=== PATIENT | female | born 1960 | race Caucasian/White ===

== ENCOUNTER 2019-06-01 14:48 | Outpatient (CLI) | payer OTHER, SELFPAY ==
--- NOTE | 2019-06-01 15:28 | XR_ITS ---
WS: [id number] LUMBAR SPINE TECHNIQUE: 3 views of the lumbar spine CLINICAL INFORMATION: LOW BACK PAIN COMPARISON: None. FINDINGS: Five [id number]-emdxskp lumbar vertebral bodies. Mild lumbar curve convex right. Disc space heights are well preserved. No compression fractures. Osteopenia. No spondylolisthesis. Visualized sacroiliac annamarie nts are normal. Normal visualized soft tissues. Partially visualized bowel gas pattern is normal. XR/XR lumbar spine 2-3V* [id number] IMPRESSION: Mild lumbar curve convex right. Lumbar spine otherwise unremarkable.
== END 2019-06-01 14:49 | disposition home or self-care (01) ==
LOC: WPI 14:52
PROVIDERS: Family Provider Nurse Practitioner; PCP Nurse Practitioner; Visit Provider Nurse Practitioner
DX: M54.5 Low back pain (principal)
CPT/HCPCS: 72100

== ENCOUNTER 2020-02-29 09:23 | Outpatient (CLI) | payer BC, SELFPAY ==
--- NOTE | 2020-02-29 09:34 | MM_ITS ---
WS: [id number] Bilateral screening digital mammogram, 02/29/2020 Clinical Data: SCREENING Comparison: 01/19/2019, 12/15/2017, 11/25/2016, 11/20/2015, 11/07/2014, 10/25/2013, 10/12/2012, 08/03/2011, , 07/22/2009. Findings: The breast parenchymal pattern shows extremely dense tissue No spiculated masses or clustered calcifi cations are seen. There are no secondary signs of carcinoma. MM/[place] [id number] Impression: 1. Negative bilateral mammogram unchanged. 2. Recommend annual screening mammograms. BIRADS: 1-Negative FOLLOW UP: 1 Year Follow-up The CAD food checkers and cashiers supervisor was used.
== END 2020-02-29 09:24 | disposition home or self-care (01) ==
LOC: RADSHAW 09:27
PROVIDERS: PCP Nurse Practitioner; Visit Provider Nurse Practitioner
DX: Z12.31 Encounter for screening mammogram for malignant neoplasm of breast (principal)
CPT/HCPCS: 77067

== ENCOUNTER 2020-06-05 19:07 | Emergency (ER) | payer BC, SELFPAY ==
[2020-06-05 19:12] VITALS: BP 93/65; PULSE 76; RESP 18; TEMP 35.7; O2SAT 100
--- NOTE | 2020-06-05 19:30 | ED_ITS ---
HPI - Abdominal Pain General: Chief Complaint: Abdominal Pain Stated Complaint: n/v Time Seen by Provider: 06/05/20 19:19 History of Present Illness: HPI narrative: The patient is a 60-year-old female with no significant past medical history who comes to the ER complaining of right lower abdominal pain. She has never had surgery on her belly. She said she vomited a couple times at home and nearly passed out twice. She had a normal bowel movement and then came to the ER. MD elicited complaint: abdominal pain Pertinent past history: none Onset (ago): hour(s) (2) Pain Consistency: constant and colicky Location: RLQ Severity: moderate Quality: cramping and sharp Radiation: none Migration to: no migration Exacerbating factors: nothing Relieving factors: nothing Associated Symptoms: Reports GI cramping, nausea and vomiting; Denies diarrhea, dysuria and fever(s) Review of Systems General: Reports: 10 or more systems reviewed and unremarkable except in HPI and below Const: Denies: fever(s) Eyes: Denies: change in vision, blurry vision or eye redness ENMT: Denies: throat pain, swelling of lips/tongue, ear or mastoid pain or nasal congestion Card: Denies: chest pain, palpitations, irregular heart rhythm, edema, dyspnea on exertion or orthopnea Resp: Denies: dyspnea, productive cough or non-productive cough GI: Reports: nausea, vomiting and GI cramping; Denies: diarrhea : Denies: dysuria Musc: Denies: neck pain, back pain, extremity pain, joint pain, joint redness, limited range of motion or muscle weakness Skin/Breast: Denies: rash, pruritus, erythema, skin pain or skin tenderness Neuro: Denies: headache(s), numbness in extremities, weakness in extremities, sensory changes, difficulty walking, dizziness, confusion or Slurred speech present Psych: Denies: anxiety or depression Endo: Denies: polyuria All/Imm: Denies: urticaria, throat swelling or tongue swelling Physical Exam Const: COMMON NORMALS: no acute distress, average body habitus, patient oriented x3, no limitations, healthy appearing, alert and well nourished GENERAL APPEARANCE: cooperative, comfortable, well kempt and well developed ORIENTATION/CONSCIOUSNESS: Yes awake, Yes oriented to person, Yes oriented to place and Yes oriented to time HENMT: COMMON NORMALS: normocephalic, external ears normal and Normal external nose present HEAD & SCALP: normal to inspection and normocephalic NOSE: Normal external nose present EXTERNAL EAR: Yes external ears normal MOUTH: Normal oral and palatal mucosa present THROAT: posterior oropharynx normal Eye: COMMON NORMALS: Equal, round and reactive pupils present and EOMs intact bilaterally GENERAL EYE: appearance normal, both eyes and all related structures PUPIL: Yes Equal, round and reactive pupils present Neck/C-Spine: COMMON NORMALS: full ROM, no lymphadenopathy, no meningeal signs and no JVD GENERAL: Yes normal visual inspection Lymph: LYMPHATIC: no lymphadenopathy noted Chest: COMMONS NORMALS: normal inspection of the chest and normal palpation of entire chest wall Resp: COMMON NORMALS: normal respiratory effort, No retractions, No use of accessory muscles, clear to auscultation bilaterally and percussion normal EF FORT & INSPECTION: Yes able to speak in complete sentences AUSCULTATION: clear to auscultation bilaterally PERCUSSION: percussion normal Cardio: COMMON NORMALS: no JVD, regular rate, regular rhythm, S1 normal heart sound present, S2 normal heart sound present and Peripheral pulses 2+ throughout RATE: regular rate RHYTHM: regular rhythm HEART SOUNDS: S1 normal heart sound present and S2 normal heart sound present PERIPHERAL PULSES: Peripheral pulses 2+ throughout GI: COMMON NORMALS: Normal to inspection, nondistended, normoactive bowel sounds present, Soft to palpation, non-tender and no masses INSPECTION: Yes normal to inspection PALPATION: Yes Soft to palpation : COMMON NORMALS: Yes no CVA tenderness BLADDER/KIDNEY EXAM: Yes no CVA tenderness Back/Pelvis: COMMON NORMALS: no CVA tenderness, thoracic and lumbar spine normal to inspection, no thoracic nor lumbar tenderness and thoraco-lumbar ROM normal Extremity: COMMON NORMALS: normal to inspection, full ROM, capillary refill normal, no joint enlargement and no pedal edema GENERAL: Yes normal exam except as noted Neuro: COMMON NORMALS: patient oriented x3, CN's II-XII intact bilaterally, moves all extremities, no focal motor deficits, no sensory deficits noted and gait normal SENSORIUM/ORIENTATION: Yes alert, Yes oriented to person, Yes oriented to place and Yes oriented to time MENINGEAL SIGNS: Yes no meningeal signs Psych: COMMON NORMALS: mental status grossly normal, Normal thought process present, cooperative, normal affect and speech normal APPEARANCE: Yes well kempt ATTITUDE: Yes calm SPEECH: Yes normal speech THOUGHT PROCESS: Normal thought process present Skin: COMMON NORMALS: no rashes or lesions noted GENERAL SKIN EXAM: no rashes or lesions noted Course Vital Signs: Vital signs: Vital Signs Temperature 96.2 F L 06/05/20 19:12 Pulse Rate 84 06/05/20 22:02 Respiratory Rate 17 06/05/20 22:02 Blood Pressure 104/62 06/05/20 22:02 Pulse Oximetry 100 06/05/20 22:02 MDM - Abdominal Pain MDM Narrative: Medical decision making narrative: The patient was initially in severe pain and slightly hypotensive with a white count of 13.8. She was given IV fluids, levofloxacin and she greatly improved. CT shows a 5 mm right ureterolithiasis at the sacral level. She had an adverse reaction to morphine for her pain and desaturated significantly. She was able to be woke and recovered spontaneously. After an hour her pain completely resolved to 0 and likely her stone passed. When she went to urinate though, no stone was in her strained urine. She will be sent home with a strainer. She will also be given ciprofloxacin, Zofran, and a case management referral has been placed to help her obtain a urology referral as an outpatient. Lactic acid was initially concerning at 4.1 however after the fluids and her complete turnaround feeling much better it lowered to near normal level. She is stable for discharge and will return with worsening symptoms. Recommended pushing fluids Differential Diagnosis: Differential diagnosis abdominal pain: Likely abdominal pain and calculus of kidney Lab Data: Labs: Lab Results 06/05/20 06/05/20 06/05/20 Range/Units 20:08 20:08 20:08 WBC 13.8 H (4.0-10.0) 10^3/ uL RBC 4.46 (4.1-5.3) 10^6/u L Hgb 13.1 (11.5-15.3) g/dL Hct 40.6 (37.0-47.0) % MCV 91.0 (81-99) fL MCH 29.4 (28.0-34.0) pg MCHC 32.3 (30.0-36.0) g/dL RDW 11.9 L (12.1-15.1) % Plt Count 278 (130-400) 10^3/c mm MPV 9.5 (7.4-10.4) fL Neut % (Auto) 82.3 % Lymph % (Auto) 10.4 % Travis % (Auto) 6.1 % Eos % (Auto) 0.3 % Baso % (Auto) 0.5 % Neut # (Auto) 11.35 H (1.8-7.7) 10^3/u L Lymph # (Auto) 1.4 (0.8-4.8) 10^3/u L Travis # (Auto) 0.8 (0.2-0.9) 10^3/u L Eos # (Auto) 0.0 (0.0-0.8) 10^3/u L Baso # (Auto) 0.1 (0.0-0.1) 10^3/u L Nucleated RBC % (a uto) 0 % Nucleated RBCs # 0.0 /100WBC Sodium 140 (136-145) mmol/L Potassium 3.5 (3.5-5.1) mmol/L Chloride 101 (98-107) mmol/L Carbon Dioxide 24 (22-29) mmol/L Anion Gap 18.5 (5-19) BUN 19 (8-23) mg/dL Creatinine 0.8 (0.5-0.9) mg/dL GFR Calculation 93.3 (90-130) mL/min Glucose 149 H (65-115) mg/dL Calculated Osmolal ity 295 (285-295) mOsm/k g Lactate 4.1 H* (0.5-2.2) mmol/L Calcium 9.7 (8.5-10.5) mg/dL Total Bilirubin 0.3 (0.15-1.2) mg/dL AST 17 (0-32) U/L ALT 13 (0-33) U/L Alkaline Phosphata se 81 (35-105) IU/L Total Protein 7.0 (6.6-8.7) g/dL Albumin 4.2 (3.5-5.2) g/dL Globulin 2.8 (1.3-4.6) g/dL Lipase 46 (13-60) U/L Urine Color (Yellow) Urine Appearance (CLEAR) Urine pH (5-7) Ur Specific Gravit y (1.005-1.030) Urine Protein (Negative) Urine Glucose (UA) (Normal) Urine Ketones (Negative) Urine Blood (Negative) Urine Nitrate (Negative) Urine Bilirubin (Negative) Urine Urobilinogen (Negative) mg/dL Ur Leukocyte Parisa ase (Negative) Urine RBC (0-2) /hpf Urine WBC (0-5) /hpf Ur Squamous Epith Cells (0-5) /hpf Amorphous Sediment Urine Bacteria (NONE) /hpf 06/05/20 06/05/20 Range/Units 22:29 22:29 WBC (4.0-10.0) 10^3/ uL RBC (4.1-5.3) 10^6/u L Hgb (11.5-15.3) g/dL Hct (37.0-47.0) % MCV (81-99) fL MCH (28.0-34.0) pg MCHC (30.0-36.0) g/dL RDW (12.1-15.1) % Plt Count (130-400) 10^3/c mm MPV (7.4-10.4) fL Neut % (Auto) % Lymph % (Auto) % Travis % (Auto) % Eos % (Auto) % Baso % (Auto) % Neut # (Auto) (1.8-7.7) 10^3/u L Lymph # (Auto) (0.8-4.8) 10^3/u L Travis # (Auto) (0.2-0.9) 10^3/u L Eos # (Auto) (0.0-0.8) 10^3/u L Baso # (Auto) (0.0-0.1) 10^3/u L Nucleated RBC % (a uto) % Nucleated RBCs # /100WBC Sodium (136-145) mmol/L Potassium (3.5-5.1) mmol/L Chloride (98-107) mmol/L Carbon Dioxide (22-29) mmol/L Anion Gap (5-19) BUN (8-23) mg/dL Creatinine (0.5-0.9) mg/dL GFR Calculation (90-130) mL/min Glucose (65-115) mg/dL Calculated Osmolal ity (285-295) mOsm/k g Lactate 2.4 H (0.5-2.2) mmol/L Calcium (8.5-10.5) mg/dL Total Bilirubin (0.15-1.2) mg/dL AST (0-32) U/L ALT (0-33) U/L Alkaline Phosphata se (35-105) IU/L Total Protein (6.6-8.7) g/dL Albumin (3.5-5.2) g/dL Globulin (1.3-4.6) g/dL Lipase (13-60) U/L Urine Color Yellow (Yellow) Urine Appearance Clear (CLEAR) Urine pH 8.0 H (5-7) Ur Specific Gravit y 1.010 (1.005-1.030) Urine Protein Neg (Negative) Urine Glucose (UA) Norm (Normal) Urine Ketones 1+ H (Negative) Urine Blood 3+ H (Negative) Urine Nitrate Negative (Negative) Urine Bilirubin Neg (Negative) Urine Urobilinogen Norm (Negative) mg/dL Ur Leukocyte Parisa ase Negative (Negative) Urine RBC 15-25 H (0-2) /hpf Urine WBC None (0-5) /hpf Ur Squamous Epith Cells None (0-5) /hpf Amorphous Sediment Not Reportable Urine Bacteria Trace (NONE) /hpf Discharge Plan Discharge Patient Disposition: Home Clinical Impression: Kidney stone Condition: Stable Prescriptions: New Zofran 4 mg tablet 4 mg PO Q8H 5 Days Qty: 15 RF: 0 ciprofloxacin HCl 500 mg tablet 500 mg PO Q12H Qty: 20 RF: 0 tramadol 50 mg tablet 25 mg PO Q6H PRN (Reason: pain) Qty: 14 RF: 0 Discharge Orders: Discharge ED (Routine); Ordered 06/05/20 Ordered By: Sage Carias Referrals: Albertina Yates APN [Primary Care Provider] - Discharge Diet: Advance as tolerated Discharge Activity: Increase activity as tolerated Patient Instructions: Renal Colic (ED) Activity Restrictions/Additional Instructions: You have a 5 mm kidney stone which is near passing. Please drink lots of fluids and follow-up with the urologist. I have placed a case management referral to help you get an appointment with Dr. Ervin (urology). They should contact you tomorrow to help with this. Please return to the ER with worsening symptoms. You may take ibuprofen for pain. Please strain your urine to see when it passes for sure. It is encouraging your pain is resolved. Also attached is an antibiotic to help with the urine infection. Take as directed. Coding Level of Care Code ED Machine Tool Technician Instructor for Gabriela Liao Exam Comprehensive
[2020-06-05] MEDS: sodium chloride 0.9% 1,000 ML 999 ML IV (20:09)
[2020-06-05] MEDS: morphine 4 mg/mL SDV 1 mL 2 MG IVP (20:17)
[2020-06-05 20:21] LABS: Basophils # 0.1 10^3/uL (0.0-0.1); Basophils % 0.5 %; Eosinophils % 0.3 %; Hematocrit 40.6 % (37.0-47.0); Hemoglobin 13.1 g/dL (11.5-15.3); Lymphocytes # 1.4 10^3/uL (0.8-4.8); Lymphocytes % 10.4 %; Mean Corpuscular HGB Conc 32.3 g/dL (30.0-36.0); Mean Corpuscular Hemoglobin 29.4 pg (28.0-34.0); Mean Platelet Volume 9.5 fL (7.4-10.4); Monocytes # 0.8 10^3/uL (0.2-0.9); Monocytes % 6.1 %; Neutrophils # 11.35 10^3/uL (1.8-7.7); Neutrophils % 82.3 %; Nucleated Red Blood Cells % 0 %; Platelet Count 278 10^3/cmm (130-400); Red Blood Count 4.46 10^6/uL (4.1-5.3); Red Cell Distribution Width 11.9 % (12.1-15.1); White Blood Count 13.8 10^3/uL (4.0-10.0)
[2020-06-05 20:36] LABS: Alanine Aminotransferase 13 U/L (0-33); Albumin Level 4.2 g/dL (3.5-5.2); Alkaline Phosphatase 81 IU/L (35-105); Aspartate Amino Transferase 17 U/L (0-32); Blood Urea Nitrogen 19 mg/dL (8-23); Calcium 9.7 mg/dL (8.5-10.5); Carbon Dioxide 24 mmol/L (22-29); Creatinine Clr Calc Pharmacy 62.2115; Globulin 2.8 g/dL (1.3-4.6); Lipase 46 U/L (13-60); Total Bilirubin 0.3 mg/dL (0.15-1.2)
[2020-06-05 20:38] LABS: Lactate (Lactic Acid level) 4.1 mmol/L (0.5-2.2)
--- NOTE | 2020-06-05 20:40 | CTR_ITS ---
PROCEDURE INFORMATION: Exam: CT Abdomen And Pelvis With Contrast Exam date and time: 06/05/2020 9:09 PM Age: 60 years old Clinical indication: Nausea and vomiting; Abdominal pain; Localized; Right lower quadrant (rlq); Additional info: Rlq abdominal pain. Lactic acid 4 TECHNIQUE: Imaging protocol: Computed tomography of the abdomen and pelvis with intravenous contrast. Total images: 218 Radiation optimization: All CT scans at this facility use at least one of these dose optimization techniques: automated exposure control; mA and/or kV adjustment per patient size (includes targeted exams where dose is matched to clinical indication); or iterative reconstruction. Contrast material: OMNI 300; Contrast volume: 75 ml; Contrast route: INTRAVENOUS (IV); COMPARISON: No relevant prior studies available. RADIATION DOSE METRICS: Total DLP (mGy-cm): 272.18 FINDINGS: Lungs: Limited assessment of the lung bases fails to reveal evidence for active cardiopulmonary process. Liver: Rare calcified hepatic granuloma of antecedent disease. No visible hepatic mass or cystic structure. Gallbladder and bile ducts: Normal. No calcified stones. No ductal dilation. Pancreas: Normal. No ductal dilation. Spleen: Scattered splenic calcified granulomas of antecedent disease. Adrenal glands: Adrenal glands unremarkable. Kidneys and ureters: Distal right ureterolithiasis measuring approximately 5 mm x 3 mm x 3 mm. The stone is located at the mid sacral level. Mild right hydronephrosis and hydroureter to the low-grade partially obstructing stone. No visible evidence of residual nephrolithiasis. Left kidney with duplex collecting system. Mild pelvicaliectasis of the inferior pole moiety. No visible nephrolithiasis or ureterolithiasis. Stomach and bowel: Assessment of the hollow viscus fails to reveal evidence of active or acute pathology. Nonobstructed bowel pattern. No visible acute diverticulitis. No visible adynamic or reactive ileus. Appendix: No evidence of appendicitis. The appendix is not clearly identified Intraperitoneal space: No visible pneumoperitoneum. No visible intraperitoneal ascites. No visible evidence of mesenteric lymphadenitis or active mesenteritis/panniculitis. Vasculature: The abdominal aorta is nonaneurysmal. Lymph nodes: No current visible evidence of active mesenteric or retroperitoneal lymphadenopathy. Urinary bladder: Urinary bladder unremarkable. No visible bladder stone. Reproductive: Unremarkable as visualized. Bones/joints: No visible acute osseous abnormality. Mild scoliotic curvature of the spine. Soft tissues: Unremarkable. CT/CT abdomen pelvis w con* [id number] IMPRESSION: 1. Distal right ureterolithiasis measuring approximately 5 mm x 3 mm x 3 mm. The stone is located at the mid sacral level. Mild right hydronephrosis and hydroureter to the low-grade partially obstructing stone. No visible evidence of residual nephrolithiasis. 2. Left kidney with duplex collecting system. Mild pelvicaliectasis of the inferior pole moiety. No visible nephrolithiasis or ureterolithiasis. Radiation Dose CTDIVOL = (mGy): DLP = 272.18 (mGy-cm)
[2020-06-05] MEDS: levofloxacin-dextrose 5 % 750 MG/150 ML PREMIX 100 MG IV (20:45)
[2020-06-05 20:56] VITALS: BP 109/61; PULSE 78; RESP 22; O2SAT 100
[2020-06-05] MEDS: iohexol 300 mg/mL 100 mL Btl IV (21:18)
[2020-06-05 21:24] LABS: Anion Gap 18.5 (5-19); Chloride 101 mmol/L (98-107); Potassium 3.5 mmol/L (3.5-5.1); Sodium 140 mmol/L (136-145)
[2020-06-05 21:28] LABS: Glucose 149 mg/dL (65-115); Osmolality Calculated 295 mOsm/kg (285-295)
[2020-06-05 21:33] LABS: Glomerular Filtration Rate 93.3 mL/min (90-130)
[2020-06-05 22:02] VITALS: BP 104/62; PULSE 84; RESP 17; O2SAT 100
[2020-06-05 22:57] LABS: Lactate (Lactic Acid level) 2.4 mmol/L (0.5-2.2)
[2020-06-05 23:13] LABS: Urine Appearance Clear (CLEAR); Urine Color Yellow (Yellow)
[2020-06-05 23:14] LABS: Add Urine Culture? No; Add Urine Microscopic? YES; Bacteria Urine TRACE /hpf; Bilirubin Urine Neg (Negative); Blood Urine 3+ (Negative); Glucose Urine UA Norm (Normal); Ketones Urine 1+ (Negative); Leukocyte Esterase Urine Negative (Negative); Nitrate Urine Negative (Negative); Protein Urine Neg (Negative); RBC Urine 15-25 /hpf (0-2); Urobilinogen Urine Norm (Negative)
[2020-06-05] MEDS: ondansetron 4 MG Tablet PO (23:20)
[2020-06-05 23:30] VITALS: BP 105/70; PULSE 85; RESP 18; O2SAT 100
--- NOTE | 2020-06-06 11:31 | DCPLANNER ---
business center manager had message to schedule a follow up appointment for patient with Dr. Ervin. business center manager called the office of Dr. Ervin, spoke with Lori, gave clinic patients information. business center manager was told that patients information would be printed and reviewed. Clinic will call patient with appointment information.
--- NOTE | 2020-06-10 09:08 | DCPLANNER ---
Patient had a follow up appointment scheduled for 06.09.[address] Ervin - patient did attend appointment.
== END 2020-06-05 23:33 | disposition home or self-care (01) ==
PROVIDERS: Emergency Provider Family Medicine; PCP Nurse Practitioner
DX: N20.0 Calculus of kidney (principal)
CPT/HCPCS: 12345; 74177; 80053; 81001; 83605; 83690; 85025; 96365; 96366; 96375; 99283; 99284; J1956; J2270; J7030; Q0162; Q9967

== ENCOUNTER 2020-06-09 07:05 | Outpatient (CLI) | payer BC, SELFPAY ==
--- NOTE | 2020-06-09 07:13 | XRR_ITS ---
PROCEDURE INFORMATION: Exam: XR Abdomen, 1 View Exam date and time: 06/09/2020 7:30 AM Age: 60 years old Clinical indication: Condition or disease; Kidney or ureter condition; Calculus (stone) in kidney; Additional info: Stones TECHNIQUE: Imaging protocol: XR of the abdomen. Views: Frontal supine view of the abdomen. 1 View. COMPARISON: CT abdomen pelvis w con* [id number] 06/05/2020 9:08 PM FINDINGS: Gastrointestinal tract: There is mildly increased stool noted in the ascending colon. Bones/joints: Stable. Other findings: Interval further caudal progression of the right intraureteral calculus, now projecting 9 mm below the sacroiliac joint, approximately 2.3 cm interval caudal progression. XR/XR KUB [id number] IMPRESSION: 1. Interval caudal progression of the known right intraureteral calculus. 2. Mild right abdominal colonic constipation.
== END 2020-06-09 07:06 | disposition home or self-care (01) ==
LOC: RAD 07:11
PROVIDERS: PCP Nurse Practitioner; Visit Provider Urology
DX: N20.0 Calculus of kidney (principal); K59.00 Constipation, unspecified
CPT/HCPCS: 74018; 81003

== ENCOUNTER 2020-06-13 07:57 | Outpatient (CLI) | payer BC, SELFPAY ==
--- NOTE | 2020-06-13 08:00 | XR_ITS ---
WS: [id number] KUB, 06/13/2020 Clinical Data: URETERAL STONE Comparison: KUB, 06/09/2020. Findings: No abnormal intraabdominal masses are seen. There is no dilatated small bowel or evidence of obstruct ion. There is a calcification on the right side of the true pelvis which could represent the distal ureter al calculus now at the ureterovesical junction. There is fecal material throughout the colon and it o bscures detail over both kidneys. XR/XR KUB [id number] Impression: Possible migration of distal right ureteral calculus to the ureteral vesicle ju nction.
== END 2020-06-13 07:58 | disposition home or self-care (01) ==
LOC: RAD 07:59
PROVIDERS: PCP Nurse Practitioner; Visit Provider Urology
DX: N20.1 Calculus of ureter (principal)
CPT/HCPCS: 74018; 81003

== ENCOUNTER 2020-06-20 09:44 | Outpatient (CLI) | payer BC, SELFPAY ==
--- NOTE | 2020-06-20 09:30 | XR_ITS ---
WS: [id number] KUB, AP view, 06/20/2020 Clinical Data: URETERAL STONE Comparison: KUB, 06/13/2020. Findings: No abnormal intraabdominal masses are seen. There are calcifications overlying the lateral aspect of the right kidney but these are not definite renal calcifications. There is no dilatated small bowel o r evidence of obstruction. The calcification on the right side of the true pelvis has not changed. Again this may represent a di stal ureterovesical junction calculus. XR/XR KUB [id number] Impression: Possible right ureterovesical junction calculus.
== END 2020-06-20 09:45 | disposition home or self-care (01) ==
PROVIDERS: PCP Nurse Practitioner; Visit Provider Urology
DX: N20.1 Calculus of ureter (principal)
CPT/HCPCS: 74018; 81003; 87635

== ENCOUNTER 2020-07-25 08:19 | Outpatient (CLI) | payer SELFPAY ==
--- NOTE | 2020-07-25 08:15 | XR_ITS ---
WS: [id number] Exam: XR KUB [id number] Date/Time of Exam: 07/25/2020 8:39 AM Reason For Exam: STONES Comparison 06/20/2020. No bowel obstruction or free air. Several scattered tiny calcifications in the right abdomen which ar e nonspecific but may represent granulomas in the liver. The renal silhouettes are unremarkable as vi sualized. Nonspecific pelvic calcifications. Moderate amount stool in the colon. Bony structures are intact. XR/XR KUB [id number] IMPRESSION: 1. No acute abdominal finding. 2. Constipation. 3. Several scattered right abdominal calcifications that may represent granulom as in the liver. Some superimpose the right kidney but are nonspecific in appea pearl.
== END 2020-07-25 08:20 | disposition home or self-care (01) ==
PROVIDERS: PCP Nurse Practitioner; Visit Provider Urology
DX: N20.9 Urinary calculus, unspecified (principal); K59.00 Constipation, unspecified
CPT/HCPCS: 74018; 81003

== ENCOUNTER 2022-07-21 16:51 | Emergency (ER) | payer OTHER, SELFPAY ==
[2022-07-21 16:53] VITALS: BP 115/73; PULSE 81; RESP 18; TEMP 36.8; O2SAT 98
--- NOTE | 2022-07-21 17:56 | ED_ITS ---
HPI - General Adult General: Chief complaint: General Medical Stated complaint: hands cramping/anxiety Time Seen by Provider: 07/21/22 17:56 History of Present Illness: 62-year-old female comes in today for complaints of episode of anxiety with hands katharine. Patient reports improvement of symptoms. Patient reports all started this morning as patient and her friend were coming to [place]. Patient and her friend stopped off and had cappuccinos. Patient is caffeine na?ve. Patient reports this afternoon patient started having palpitations and her hands were drawing up as she was going home. What concerned patient most was when her hands were katharine after she had stopped at her pharmacist office to talk with him. He recommended that she be evaluated in the ER for concerns of possible stroke. Patient now has no obvious signs of stroke or CVA. Patient denies any suicidal or homicidal thoughts and only mild chest discomfort. Patient takes no routine medications and has no significant medical history except renal stones. Associated symptoms: Reports chest pain, dyspnea (Hyperventilating) and nausea Review of Systems Const: Reports: fatigue Card: Reports: chest pain Resp: Reports: dyspnea (Hyperventilating) GI: Reports: nausea : Denies: flank pain Musc: Denies: neck pain or back pain PFSH ED PFSH: Medical History Right ureteral stone Family History Mother CHF (congestive heart failure) Father Dementia Social History Smoking and tobacco status: never smoked Alcohol intake: never Marital status: / Current occupational status: employed Physical Exam Const: COMMON NORMALS: alert HENMT: COMMON NORMALS: normocephalic HEAD & SCALP: normocephalic Neck/C-Spine: COMMON NORMALS: full ROM Chest: COMMONS NORMALS: normal inspection of the chest Resp: COMMON NORMALS: normal respiratory effort and clear to auscultation bilaterally AUSCULTATION: clear to auscultation bilaterally Cardio: COMMON NORMALS: regular rate and regular rhythm RATE: regular rate RHYTHM: regular rhythm GI: COMMON NORMALS: Soft to palpation and non-tender PALPATION: Yes Soft to palpation Extremity: COMMON NORMALS: normal to inspection Neuro: SENSORIUM/ORIENTATION: Yes alert Skin: COMMON NORMALS: no rashes or lesions noted and turgor normal GENERAL SKIN EXAM: no rashes or lesions noted and turgor normal Course Vital Signs: Vital signs: Vital Signs Temperature 98.2 F 07/21/22 16:53 Pulse Rate 81 07/21/22 16:53 Respiratory Rate 18 07/21/22 16:53 Blood Pressure 115/73 07/21/22 16:53 Pulse Oximetry 98 07/21/22 16:53 Oxygen Delivery Me thod 07/21/22 16:53 [facility] - General Adult Medical Decision Making Patient comes in today with complaints of hands drawing and anxiety. Patient describes a hyperventilation event. On exam respirations are even lungs are clear to auscultation. Skin was warm and dry. Patient appears nontoxic. Vital signs are normal. Differential diagnosis includes but not limited to adverse effect of caffeine, panic attack, hyperventilation. Reviewed exam with patient with recommendations for treatment. Patient did not want to do labs but will follow-up with her primary care in the morning. Agreed with patient's plan and need for follow-up or return to the ER. Discharge Plan Discharge Patient Disposition: Home Clinical Impression: Anxiety, Anxiety hyperventilation Condition: Stable Prescriptions: No Action hydrocodone-acetaminophen [[place]] 5-325 mg tablet 1 tab PO Q6H 3 Days Qty: 12 0RF cholecalciferol (vitamin D3) 10 mcg (400 unit) capsule 10 mcg PO DAILY elderberry fruit and flower 460-115 mg capsule PO DAILY ascorbic acid (vitamin C) 500 mg capsule PO DAILY tramadol 50 mg tablet 25 mg PO Q6H PRN (Reason: pain) Qty: 14 0RF Discharge Orders: Discharge ED (Routine); Ordered 07/21/22 Ordered By: Abel Majano Referrals: Alberitna Yates APN [Primary Care Provider] - Discharge Diet: Usual diet Discharge Activity: Increase activity as tolerated Patient Instructions: Anxiety (ED) Activity Restrictions/Additional Instructions: Home and rest. Follow-up with primary care in the morning. Coding Level of Care Code ED Lead Process Engineer for Gabriela Liao
== END 2022-07-21 18:25 | disposition home or self-care (01) ==
PROVIDERS: Emergency Provider Nurse Practitioner Family; PCP Nurse Practitioner
DX: F41.9 Anxiety disorder, unspecified (principal); R06.4 Hyperventilation
CPT/HCPCS: 99283

== ENCOUNTER → 2023-07-18 10:54 | Outpatient (BNVA) | payer MEDICARE, SELFPAY | PROVIDERS: PCP Family Medicine; Visit Provider Podiatrist Foot & Ankle Surgery | DX: M20.11 Hallux valgus (acquired), right foot; M21.611 Bunion of right foot | CPT/HCPCS: 73630; 99203 ==

== ENCOUNTER 2023-09-22 13:15 | Outpatient (CLI) | payer MEDICARE, SELFPAY ==
--- NOTE | 2023-09-22 13:21 | MM_ITS ---
WS: [id number] BILATERAL SCREENING DIGITAL TOMOSYNTHESIS MAMMOGRAM WITH CAD HISTORY: SCREENING COMPARISON: 02/29/2020, 01/19/2019 Bilateral CC and MLO views with tomosynthesis and synthetic mammography submitted. Computer aided det ection analyzed. Breast composition: The breasts are extremely dense, which lowers the sensitivity of mammography. No suspicious masses, microcalcifications or architectural distortion. IMPRESSION: MM/[place] [id number] BI-RADS: 1-Negative FOLLOW UP: 1 Year Follow-up
--- NOTE | 2023-09-22 13:21 | XR_ITS ---
WS: [id number] DEXA (DUAL ENERGY X-RAY ABSORPTIOMETRY) Bone mineral density was performed using a [employer] machine. HISTORY: ASYMPTOMATIC MENOPAUSAL STATE COMPARISON: None available. Lumbar spine BMD (L1-L4): 0.816 g/cm2 T score: -3.0 Z score: -1.1 Total hip BMD: Left: 0.872 g/cm2. T score: -1.1 Z score: 0.4 Right: 0.806 g/cm2. T score: -1.6 Z score: -0.2 10 year probability of a major osteoporotic fracture is 8.7%. IMPRESSION: OSTEOPOROSIS based upon the WHO classification for females.
== END 2023-09-22 13:16 | disposition home or self-care (01) ==
LOC: RAD 13:16
PROVIDERS: PCP Family Medicine; Visit Provider Nurse Practitioner Family
DX: Z12.31 Encounter for screening mammogram for malignant neoplasm of breast (principal); Z78.0 Asymptomatic menopausal state; M81.0 Age-related osteoporosis without current pathological fracture; R92.30 Dense breasts, unspecified
CPT/HCPCS: 77063; 77067; 77080

== ENCOUNTER 2024-10-18 08:55 | Outpatient (CLI) | payer MEDICARE, SELFPAY ==
--- NOTE | 2024-10-18 09:00 | MM_ITS ---
WS: [id number] BILATERAL SCREENING DIGITAL TOMOSYNTHESIS MAMMOGRAM WITH CAD HISTORY: SCREENING COMPARISON: 09/22/2023, 02/29/2020 Bilateral CC and MLO views with tomosynthesis and synthetic mammography submitted. Computer aided detection analyzed. Breast composition: The breasts are heterogeneously dense, which may obscure small masses. No suspicious masses, microcalcifications or architectural distortion. MM/MM scr BI tomosynthesis [id number] IMPRESSION: BI-RADS: 1 - Negative FOLLOW UP: 1 Year Follow-up
== END 2024-10-18 08:56 | disposition home or self-care (01) ==
PROVIDERS: PCP Family Medicine; Visit Provider Family Medicine
DX: Z12.31 Encounter for screening mammogram for malignant neoplasm of breast (principal); R92.333 Mammographic heterogeneous density, bilateral breasts
CPT/HCPCS: 77063; 77067